=== PATIENT | female | born 1970 | race Caucasian/White ===

== ENCOUNTER 2017-12-28 10:45 | Emergency (ER) | payer OTHER ==
[2017-12-28 11:21] VITALS: TEMP 98
--- NOTE | 2017-12-28 11:32 | ED ---
General Adult HPI - General Chief complaint: Chest Pain Stated complaint: Rib pain/sob Time Seen by Provider: 12/28/17 11:22 Source: patient, RN notes reviewed Mode of arrival: ambulatory Limitations: no limitations - History of Present Illness Initial comments: Patient 47-year-old female presenting to the emergency room today with a chief complaint of left-sided rib pain. Patient is to cough congestion over the last week. States that she's been coughing up some sputum production. Patient does admit that yesterday when she woke up she noticed that she was having some pain to the left lower rib. She states worse with movements. Worse if she coughs, sneezes. Patient states did not take anything for pain today before coming here to the hospital have a check. Patient states still expresses a cough and congestion. Patient denies any recent fever, chills, shortness of breath, back pain, abdominal pain, nausea or vomiting, numbness or tingling, dysuria or hematuria, constipation or diarrhea, headaches or visual changes, or any other complaints. - Related Data Previous Rx's Medication Instructions Recorded Benzonatate [Tessalon Perles] 100 mg PO TID PRN #20 capsule 12/28/17 Ibuprofen [Motrin] 800 mg PO Q6HR #30 tab 12/28/17 traMADol HCl [Ultram] 50 mg PO Q6H PRN #40 tab 12/28/17 Allergies Allergy/AdvReac Type Severity Reaction Status Date / Time hydromorphone HCl Allergy Dyspnea, Verified 12/28/17 11:21 [From Dilaudid] itching Review of Systems ROS Statement: Those systems with pertinent positive or pertinent negative responses have been documented in the HPI. ROS Other: All systems not noted in ROS Statement are negative. Past Medical History Past Medical History: GERD/Reflux, Skin Disorder Additional Past Medical History / Comment(s): POSS GERD. HX KIDNEY STONES. 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 Past Anesthesia/Blood Transfusion Reactions: Motion Sickness Past Psychological History: Depression Smoking Status: Current every day smoker Past Alcohol Use History: Occasional Past Drug Use History: None Reported - Past Family History Mother Family Medical History: Cancer General Exam - General Exam Comments Initial Comments: General: The patient is awake and alert, in no distress, and does not appear acutely ill. Eye: Pupils are equal, round and reactive to light, extra-ocular movements are intact. No nystagmus. There is normal conjunctiva bilaterally. No signs of icterus. Ears, nose, mouth and throat: There are moist mucous membranes and no oral lesions. Neck: The neck is supple, there is no tenderness or JVD. Cardiovascular: There is a regular rate and rhythm. No murmur, rub or gallop is appreciated. Respiratory: Lungs are clear to auscultation, respirations are non-labored, breath sounds are equal. No wheezes, stridor, rales, or rhonchi. Musculoskeletal: Normal ROM. Tender to palpation over the left lateral lower ribs. No step-off or deformity. No bruising. Strength 5/5. Sensation intact. Pulses equal bilaterally 2+. Neurological: A&O x 3. CN II-XII intact, There are no obvious motor or sensory deficits. Coordination appears grossly intact. Speech is normal. Skin: Skin is warm and dry and no rashes or lesions are noted. Psychiatric: Cooperative, appropriate mood & affect, normal judgment. Limitations: no limitations Course Vital Signs 12/28/17 12/28/17 11:17 12:11 Temperature 98.0 F Pulse Rate 101 H 88 Respiratory 18 18 Rate Blood Pressure 132/96 153/95 O2 Sat by Pulse 95 97 Oximetry EKG Findings - EKG Comments: EKG Findings:: Patient's EKG performed at 1145: Shows normal sinus rhythm at 86 bpm. [place] interval 144. QRS 92. QT/QTc is 372/445. No acute ST changes. Medical Decision Making - Medical Decision Making Patient x-ray reviewed and does show fracture of the ninth rib. And possible fracture of the eighth. Results were discussed with patient. Patient will call medication along with pain medicine of Ultram and ibuprofen to go home with as she states anything stronger makes her sick. Disposition Clinical Impression: Rib fracture Disposition: HOME SELF-CARE Condition: Good Instructions: Rib Fracture (ED) Additional Instructions: Please use medication as discussed. Please try to brace the area if you have to cough, sneeze. Please follow-up with family doctor in the next 2 days of symptoms have not improved. Please return to emergency room if the symptoms increase or worsen or for any other concerns. Prescriptions: Benzonatate [Tessalon Perles] 100 mg PO TID PRN #20 capsule PRN Reason: Cough Ibuprofen [Motrin] 800 mg PO Q6HR #30 tab traMADol HCl [Ultram] 50 mg PO Q6H PRN #40 tab PRN Reason: Pain Is patient prescribed a controlled substance at d/c from ED?: No Referrals: None,Stated [Primary Care Provider] - 1-2 days Pricila Burciaga MD [STAFF PHYSICIAN] - 1-2 days Time of Disposition: 13:01
[2017-12-28] MEDS ORDERED: KETOROLAC 60 MG/2 ML VIAL IM STA (11:52)
--- NOTE | 2017-12-28 12:50 | XR ---
EXAMINATION TYPE: XR ribs LT , 4 VIEWS DATE OF EXAM ORDERED: 12/28/2017 HISTORY: Pain. COMPARISON: None. FINDINGS: There is an undisplaced fracture of the left ninth rib laterally. The underlying lung is u nremarkable. No pneumothorax is evident. No definite additional rib fractures are seen. IMPRESSION: UNDISPLACED FRACTURE OF THE LEFT NINTH RIB. CODE A: INITIAL ENCOUNTER FOR CLOSED FRACTURE.
--- NOTE | 2017-12-28 12:51 | XR ---
EXAMINATION TYPE: XR chest 2V DATE OF EXAM: 12/28/2017 HISTORY: cough. REFERENCE: Previous study dated 06/12/2015. FINDINGS: The patient's left ninth rib fracture is not clearly evident on this study. The lungs appea r clear. Pleural space are clear. The heart is not enlarged. IMPRESSION: NORMAL CHEST. THE PATIENT'S KNOWN LEFT NINTH RIB FRACTURE IS NOT IDENTIFIED ON THIS STUDY.
[2017-12-28 13:11] VITALS: BP 142/97; PULSE 89; RESP 20
== END 2017-12-28 13:11 | disposition home or self-care (01) ==
LOC: EC 10:45
DX: S22.32XA Fracture of one rib, left side, initial encounter for closed fracture (principal); F17.200 Nicotine dependence, unspecified, uncomplicated; Z88.5 Allergy status to narcotic agent
CPT/HCPCS: 93005; 71100; 71046; 99283; 96372; J1885

== ENCOUNTER 2020-03-01 12:51 | Day surgery (SDC) | payer SELFPAY ==
[2020-02-29 10:18] VITALS: BMI 24.7
[~2020-03-01 12:51] MED LIST: FAMOTIDINE 20 MG/2 ML VIAL IV PRN; LACTATED RINGERS 1,000 ML IV SCH; MORPHINE SULFATE 4 MG/ML SYRINGE IV PRN; ONDANSETRON 4 MG/2 ML VIAL IVP PRN
[2020-03-01] MEDS ORDERED: LIDOCAINE 1% (10MG/ML) FOR IV START INTRADERMA ONE (13:28)
[2020-03-01] MEDS ORDERED: ONDANSETRON 4 MG/2 ML VIAL ONE (13:35)
[2020-03-01] MEDS ORDERED: SCOPOLAMINE 1.5MG/72HR PATCH TRANSDERM ONE (13:40)
[2020-03-01] MEDS ORDERED: DEXAMETHASONE SOD PHOSPHATE 10 MG/ML 1 ML VIAL IV ONE (13:43)
[2020-03-01] MEDS ORDERED: MIDAZOLAM 2 MG/2 ML VIAL IVP ONE (14:07)
[2020-03-01] MEDS ORDERED: LACTATED RINGERS 1,000 ML IV ONE (15:13)
[2020-03-01] MEDS ORDERED: LIDOCAINE 1%-EPI 1:100,000 20 ML VIAL SQ ONE ×2 (15:28→17:47)
[2020-03-01] MEDS: fentaNYL (PF) 50 MCG/ML 2 ML AMP IV ONE ×2 (18:20→18:25)
[2020-03-01] MEDS: MEPERIDINE 50 MG/ML SYRINGE IVP ONE ×2 (18:35→18:51)
[2020-03-01 20:39] VITALS: TEMP 97.7
[2020-03-01 20:41] VITALS: BP 132/79; PULSE 84; RESP 16
--- NOTE | 2020-03-02 07:26 | XR ---
Fluoroscopy History: Patchy perihilar and basilar infiltrates are noted. Follow-up advised. 2 MIN 12 SEC FL-5 IMAGES
--- NOTE | 2020-03-02 07:30 | P.ANPRN ---
Procedure Note - Anesthesia - Nerve Block Performed Right Supraclavicular Single Time Out Performed: Yes Date of Procedure: 03/01/20 Procedure Start Time: 14:06 Procedure Stop Time: 14:09 Location of Patient: PreOp Indication: Acute Post-Operative Pain, Requested by Surgeon Sedation Type: Sedate with meaningful contact maintained Preparation: Sterile Prep Position: Supine Needle Types: Pajunk Needle Gauge: 21 Ultrasound used to visualize needle placement: Yes Ultrasound used to observe medication spread: Yes Blood Aspirated: No Pain Paresthesia on Injection Noted: No Resistance on Injection: Normal Image Stored and Saved: Yes Events: Uneventful and Well Tolerated (ropi .5% 30 cc plus dexamethasone 4mg)
--- NOTE | 2020-03-12 13:09 | P.OP ---
Date of Procedure: 03/01/20 Preoperative Diagnosis: Displaced, intra-articular right distal radius fracture Postoperative Diagnosis: Displaced, intra-articular right distal radius fracture Procedure(s) Performed: Open reduction and internal fixation of displaced, intra-articular right distal radius fracture (>3 fragments: CPT 76566) Implants: Acumed Acu-Loc 2 volar distal radius plate (right, narrow) with locking screws (standard and variable angle) and cortical screws; four 0.062 K wires Anesthesia: GETA, regional Surgeon: Will Botello Shading Painter #1: Callie Benz Estimated Blood Loss (ml): 10 Condition: stable Disposition: PACU Indications for Procedure: The patient is a 49-year-old female who sustained an injury to the right wrist, resulting in a displaced distal radius fracture. She was initially treated with closed reduction and splinting by another provider. Follow up x-rays demonstrated residual displacement and she was referred to [place] for further evaluation. Treatment options (and associated risks and benefits) were discussed in the office. Based on the fracture pattern and degree of displacement, operative intervention was recommended with open reduction and internal fixation. The patient expressed understanding and agreed with surgical treatme nt. In preop, additional questions were addressed and the patient wished to proceed with surgery. Consent forms were signed. The surgical site was confirmed and marked preoperatively. Description of Procedure: The patient was administered a regional nerve block by the anesthesia team and was then brought to the operating suite and positioned supine with the operative limb on an arm board. All bony prominences were well-padded. Anesthesia and prophylactic antibiotics were administered uneventfully. A tourniquet was placed on the operative arm, which was then prepped and draped in standard, sterile fashion. A time-out was performed, confirming patient identifiers, the operative side, site and the procedure to be performed: all team members expressed agreement. The limb was exsanguinated with an Esmarch and the tourniquet was inflated. A volar FCR approach was utilized. The skin was incised sharply incised. The subcutaneous tissues were spread, coagulating superficial vessels as needed. The radial artery was identified and protected throughout the case. The FCR sheath was released and the tendon was mobilized. The floor of the sheath was incised. Blunt & spreading dissection was used to develop Paronas space and expose the pronator quadratus. There was a small transverse traumatic disruption in the muscle belly at the level of the fracture. This was sharply extended along its radial border & the pronator was subperiosteally elevated ulnarly. The transitional fiber zone was elevated and the fracture site was visualized. The fracture extended obliquely across the metaphysis from the radial styloid into the proximal portion of the sigmoid notch of the DRUJ. A nondisplaced split into the lunate fossa was noted. There was marked shortening of the radial column. The dorsal comminuted fragments were carefully disimpacted through the fracture site with a Medon elevator, taking care to protect the extensor tendons. The fracture was manually reduced, using a combination of axial traction, ulnar deviation and palmar translation. With the fracture held in a reduced position, a 0.062 K wire was inserted percutaneously into the radial styloid and advanced across the fracture and into metaphysis for provisional stabilization. This did not afford satisfactory stability and a second K wire was introduced in a similar fashion. Repeat imaging demonstrated incomplete zoroastrian of radial length and volar tilt. The K wires in the styloid were backed out across the fracture site. To alleviate its deforming force, the brachioradialis tendon was identified and released from its insertion on the radial styloid, taking care to protect the first dorsal compartment tendons. The fracture was remanipulated and a Ambrosio-Kleinert elevator was used to manually reduce/elevate the styloid fragment. Improved reduction was confirmed and the wires were readvanced. Factoring in the patients anatomy and specific fracture pattern, a plate was selected and provisionally pinned in place with K-wires. Once satisfactory placement was obtained, a cortical screw was drilled, measured and inserted into the oblong hole of the plate. Attention was turned to the distal fixation. A paucity of dorsal metaphyseal bone was noted when drilling for the distal locking screws. While confirming length of a screw measurement on imaging, recurrent depression of the dorsal articular surface was noted with some loss of volar tilt. Dynamic fluoroscopy demonstrated motion of the dorsal rim. The distal locking screws were removed. A small incision was made dorsally and spreading dissection was used to expose the dorsal radius, taking care to identify and mobilize the extensor tendons. Using a Kapandji intrafocal pinning technique, a 0.062 K-wire was inserted into the fracture site. The wrist was flexed and the K-wire was advanced into the volar metaphysis, protruding only slightly beyond the volar cortex. A second wire was selected and exposure was obtained in a similar fashion. This wire was placed directly on bone (into the stronger remaining bone of the distal fragment) and advanced up to the volar cortex. Repeat imaging demonstrated zoroastrian of volar tilt and dorsal rim length. Stress testing showed no motion. The distal locking screws were then sequentially drilled, measured and inserted, confirming length and trajectory on imaging. An additional cortical screw was drilled and inserted to further secure the plate to the metaphysis. The provisional K-wires securing the plate were removed but the percutaneously placed K wires (both dorsally and in the radial styloid) were left for adjunct fixation. Final x-rays were obtained, including a 20 inclined lateral view, confirming extra-articular screw placement. The wrist was then ranged under live fluoroscopy - no motion of the fracture fragments or fixation construct was appreciated. The tourniquet was released after 118 minutes at 150 mmHg. Good hemostasis was obtained with manual pressure and electrocautery. The wound was thoroughly irrigated with normal saline. The pronator and transitional fiber zone were loosely repaired over the plate with interrupted Vicryl sutures. The subcutaneous tissues were reapproximated with interrupted 3-0 Vicryl sutures. The incision was closed with interrupted 4-0 nylon sutures. Local anesthetic with epinephrine was injected into the perioperative subcutaneous tissues for adjunct postoperative pain control and hemostasis. A sterile dressing was applied, followed by a resting volar plaster splint. All sponge, needle and instrument counts were correct at the end of the case. The patient tolerated the procedure well and was taken to the recovery room in stable condition.
== END 2020-03-01 22:00 | disposition home or self-care (01) ==
LOC: OR 12:51 → 1SOBS 18:29 → OR 22:00
PROVIDERS: ATTEND Orthopaedic Surgery
DX: S52.571A Other intraarticular fracture of lower end of right radius, initial encounter for closed fracture (principal); W07.XXXA Fall from chair, initial encounter; F17.210 Nicotine dependence, cigarettes, uncomplicated; Z97.3 Presence of spectacles and contact lenses; Z90.710 Acquired absence of both cervix and uterus; Z98.890 Other specified postprocedural states; Z87.442 Personal history of urinary calculi; F41.9 Anxiety disorder, unspecified; K21.9 Gastro-esophageal reflux disease without esophagitis; Z79.1 Long term (current) use of non-steroidal anti-inflammatories (NSAID); Z79.891 Long term (current) use of opiate analgesic; Z79.899 Other long term (current) drug therapy; Z88.5 Allergy status to narcotic agent
CPT/HCPCS: 25609; 64415; 76942; 73110; C1713; J2250; J2270; J1100; J2175; J0690; J2405; J3010; 64999